=== PATIENT | female | born 1990 | race Caucasian/White ===

== ENCOUNTER 2020-12-23 18:32 | Emergency (ER) | payer BC ==
--- NOTE | 2020-12-23 19:16 | EDM.PDOC ---
ED HPI GENERAL MEDICAL PROBLEM - General Chief Complaint: General Stated Complaint: SINUS Time Seen by Provider: 12/23/20 19:00 Source of Information: Reports: Patient, RN Notes Reviewed History Limitations: Reports: No Limitations - History of Present Illness INITIAL COMMENTS - FREE TEXT/NARRATIVE: Malou presents today for complaints of sinus congestion and ear pain for >7 day s. She states she has had ear pain to both ears with itching, frontal headache with sinus congestion. She has tried use of saline nasal rinses, afrin, OTC cold medications without any improvement for the past 7 to 10 days. She denies cough, cough with mucus production, SOB, fever, chills, body aches, loss of taste or smell, injury, trauma or any other concerns. Upper Forehead Pain Score (Numeric/FACES): 6 - Related Data Allergies Allergy/AdvReac Type Severity Reaction Status Date / Time No Known Allergies Allergy Verified 12/23/20 18:52 Home Meds: Home Meds NK [No Known Home Meds] 12/23/20 [History] Past Medical History Respiratory History: Reports: Asthma Musculoskeletal History: Reports: Fracture Other Musculoskeletal History: fx knee Psychiatric History: Reports: Anxiety - Infectious Disease History Infectious Disease History: Reports: Chicken Pox Social & Family History - Tobacco Use Tobacco Use Status *Q: Never Tobacco User - Caffeine Use Caffeine Use: Reports: Coffee - Recreational Drug Use Recreational Drug Use: No ED ROS GENERAL - Review of Systems Review Of Systems: See Below Constitutional: Denies: Fever, Chills, Malaise, Weakness, Fatigue, Night Sweats, Diaphoresis, Decreased Appetite HEENT: Reports: Ear Pain, Rhinitis, Sinus Problem. Denies: Dental Pain, Ear Discharge, Eye Discharge, Eye Pain, Hearing Loss, Nose Pain, Throat Pain, Throat Swelling, Vertigo, Vision Change Respiratory: Denies: Shortness of Breath, Wheezing, Pleuritic Chest Pain, Cough, Sputum Cardiovascular: Reports: No Symptoms GI/Abdominal: Reports: No Symptoms : Reports: No Symptoms Musculoskeletal: Reports: No Symptoms Skin: Reports: No Symptoms Neurological: Reports: Headache. Denies: Confusion, Dizziness, Numbness, Paresthesia, Seizure, Syncope, Tingling, Trouble Speaking, Difficulty Walking, Change in Speech Psychiatric: Reports: No Symptoms Hematologic/Lymphatic: Reports: No Symptoms Immunologic: Reports: No Symptoms ED EXAM, GENERAL - Physical Exam Exam: See Below Exam Limited By: No Limitations General Appearance: Alert, WD/WN, No Apparent Distress Eye Exam: Bilateral Eye: EOMI, Normal Inspection, PERRL Ears: Normal Canal, Hearing Grossly Normal Ear Exam: Right Ear: TM Dull, TM Bulging, Left Ear: TM Red, Bilateral Ear: Tenderness, Other (no perforations to Right or Left TM) Nose: No Blood, Nasal Swelling, Nasal Drainage, Clear Rhinorrhea. No: Nasal Tenderness, Nasal Deformity, Nasal Flaring Throat/Mouth: Normal Inspection, Normal Lips, Normal Teeth, Normal Gums, Normal Oropharynx, Normal Voice, No Airway Compromise Head: Atraumatic, Normocephalic, Facial Tenderness, Sinus Tenderness (with percussion to frontal sinuses. No pain to maxillary sinuses. ). No: Facial Swelling Neck: Normal Inspection, Supple, Non-Tender, Full Range of Motion. No: Lymphadenopathy (R), Lymphadenopathy (L) Respiratory/Chest: No Respiratory Distress, Lungs Clear, Normal Breath Sounds, No Accessory Muscle Use, Chest Non-Tender. No: Crackles, Rales, Rhonchi, Wheezing, Stridor, Pleural Rub, Retractions Cardiovascular: Normal Peripheral Pulses, Regular Rate, Rhythm, No Edema, No Gallop, No Murmur, No Rub Back Exam: Normal Inspection, Full Range of Motion. No: CVA Tenderness (R), CVA Tenderness (L) Extremities: Normal Inspection, Normal Range of Motion, Non-Tender, No Pedal Edema, Normal Capillary Refill Neurological: Alert, Oriented, Normal Cognition, Normal Gait, Normal Reflexes, No Motor/Sensory Deficits Psychiatric: Normal Affect, Normal Mood Skin Exam: Warm, Dry, Intact, Normal Color, No Rash Lymphatic: No Adenopathy Course - Vital Signs Last Recorded V/S: Last Vital Signs Temp 36.2 C 12/23/20 18:57 Pulse 79 12/23/20 18:57 Resp 16 12/23/20 18:57 BP 148/99 H 12/23/20 18:57 Pulse Ox 98 12/23/20 18:57 - Orders/Labs/Meds Labs: Laboratory Tests 12/23/20 Range/Units 19:20 SARS CoV-2 RNA Rapid DEVI Negative Patient notified, she will be discharged to home. Departure - Departure Time of Disposition: 19:37 Disposition: Refer to Observation Condition: Good Clinical Impression: Acute sinusitis, Left otitis media - Discharge Information *PRESCRIPTION DRUG MONITORING PROGRAM REVIEWED*: Not Applicable *COPY OF PRESCRIPTION DRUG MONITORING REPORT IN PATIENT LAURA: Not Applicable Instructions: Sinusitis, Adult Referrals: PCP,None [Primary Care Provider] - Forms: ED Department Discharge Additional Instructions: You have been evaluated and treated for acute sinusitis and left otitis media. Take augmentin (amoxicillin/clavulanate) one pill every 12 hours for 10 days for infection. You can buy pseudoephedrine 60mg tablets and take three times a day for sinus congestion - this can make your heart rate faster - only take as long as needed. Take zyrtec (cetirizine) 10mg tablet once a day - antihistamine. You can you tylenol cold day/night or nyquil day/night as directed. Use of flonase (fluticasone) two sprays each nare at night to help with sinus congestion. Drink plenty of fluids to stay hydrated. Warm tea, hot chocolate helps with congestion. Take tylenol and ibuprofen as needed for pain/aches/fever. COVID19 rapid test negative Sepsis Event Note (ED) - Evaluation Sepsis Screening Result: No Definite Risk - Focused Exam Vital Signs: Vital Signs Temp Pulse Resp BP Pulse Ox 12/23/20 18:57 36.2 C 79 16 148/99 H 98 12/23/20 18:46 36.2 C 79 16 148/99 H 98 - Assessment/Plan Assessment:: Acute sinusitis Left otitis media Plan: Patient evaluated and treated for acute sinusitis and left otitis media. Take augmentin (amoxicillin/clavulanate) one pill every 12 hours for 10 days for infection. She can buy pseudoephedrine 60mg tablets and take three times a day for sinus congestion - this can make heart rate faster - only take as long as needed. Take zyrtec (cetirizine) 10mg tablet once a day - antihistamine. She can try tylenol cold day/night or nyquil day/night as directed. Use of flonase (fluticasone) two sprays each nare at night to help with sinus congestion. Drink plenty of fluids to stay hydrated. Warm tea, hot chocolate helps with congestion. Take tylenol and ibuprofen as needed for pain/aches/fever. COVID19 rapid test negative.
== END 2020-12-23 19:44 ==
LOC: JP.ED 18:32
DX: J01.90 Acute sinusitis, unspecified (principal); H66.92 Otitis media, unspecified, left ear; Z20.822 Contact with and (suspected) exposure to COVID-19
CPT/HCPCS: 99283; U0002